=== PATIENT | male | born 1965 | race African-American/Black ===

== ENCOUNTER 2017-08-02 13:57 | Outpatient (CLI) | payer OTHER ==
--- NOTE | 2017-08-03 08:28 | MRI Report ---
EXAM: LEFT KNEE MRI WITHOUT CONTRAST EXAM DATE: 08/02/2017 03:04 PM. CLINICAL HISTORY: Left knee pain. COMPARISON: None. TECHNIQUE: Multiplanar, multisequence T1-weighted and fluid-sensitive sequences of the knee without c ontrast. Other: None. FINDINGS: Bones: No fractures or subluxations. No marrow edema. No bone lesions. Articular Cartilage: Unremarkable. Medial Meniscus: The medial meniscus is intact. Lateral Meniscus: The lateral meniscus is intact. Cruciate Ligaments: The anterior and posterior cruciate ligaments are intact. Collateral Ligaments: The medial collateral and lateral collateral ligamentous structures are intact. Tendons: The quadriceps, patellar, semimembranosus, and popliteus tendons are unremarkable. Musculature: No edema or fatty atrophy. Other: No effusion. No popliteal cyst. No loose bodies. The medial and lateral retinacula are intact . There is some subcutaneous edema anteriorly.. IMPRESSION: 1. Menisci, cruciates, and collaterals appear unremarkable. 2. Some subcutaneous edema is seen anteriorly. No other worrisome imaging features are noted. [facility] MUSCULOSKELETAL RADIOLOGY SECTION Referring Provider Line: [phone] SITE ID: [id number]
== END 2017-08-02 13:58 | disposition home or self-care (01) ==
LOC: DI 13:57
PROVIDERS: ATTEND Nurse Practitioner Family
DX: M25.562 Pain in left knee (principal); R60.0 Localized edema